=== PATIENT | female | born 1975 | race Caucasian/White ===

== ENCOUNTER 2017-02-08 19:18 | Emergency (ER) | payer OTHER ==
[~2017-02-08] VITALS: Ht 162.6 cm; Wt 62.6 kg
--- NOTE | ~2017-02-08 | CT2 ---
[facility] A Service of [facility] & [facility] RADIOLOGY TEXT RESULTS PATIENT: SYBIL BURLESON LOCATION: [facility] : [birth year] UNIT #: [id number] AGE: [address]: Jose Fajardo DO SEX: F ORDER DR: [id number] [facility] [address] [place], [place] [address] [id number] E MR#: [id number] Acc #: [id number] NAME: SYBIL BURLESON : 1975 SEX: F STUDY DATE/TIME: 02/08/2017 23:52 UNIT: [facility] ROOM: STUDY DESCRIPTION: CT Abd and Pelv W Cont Attending Physician: Jose Fajardo D.O. Ordering Physician: Jose Fajardo D.O. Primary Care Physician: Luna Johnson MEDICAL IMAGING REPORT This report is preliminary unless electronic signature is present EXAM CT abdomen and pelvis 02/08 23:52 INDICATION Abdominal pain with nausea and chills that started today. Diagnosed with urinary tract infection yesterday. TECHNIQUE Axial images were obtained through the abdomen and pelvis following IV contrast administration. Multiplanar reformats were obtained. No comparison. This CT examination was performed with one or more of the following radiation dose reduction techniques: automatic exposure control, adjustment of mA and/or kV according to patient size, and iterative reconstruction. FINDINGS ABDOMEN: Lung bases are clear. Gallbladder is normal. No biliary obstruction. Left kidney is surgically absent. Right kidney is normal and nonobstructed. There is an area of low attenuation change in the medial segment of the left hepatic lobe. This is likely an area of focal fatty infiltration. Confirmation with outpatient liver MRI recommended. Solid organs otherwise are normal. No adenopathy or free fluid is seen. The unopacified GI tract is normal. PELVIS: IUD present within the uterus. Solid pelvic organs otherwise unremarkable. Urinary bladder is normal. The appendix is normal. Remainder of the unopacified GI tract is normal as well. IMPRESSION 1. No acute findings in the abdomen or pelvis. 2. Surgically absent left kidney. The right kidney is normal and nonobstructed. STS. [facility] A Service of [facility] & [facility] RADIOLOGY TEXT RESULTS PATIENT: SYBIL BURLESON LOCATION: [facility] : [birth year] UNIT #: [id number] AGE: [address]: Jose Fajardo DO SEX: F ORDER DR: 3. Normal unopacified GI tract including the appendix. 4. IUD within the uterus. 5. Low attenuation change in the medial segment of the left hepatic lobe is probably an area of fatty infiltration. Outpatient liver MRI is recommended to confirm. Dictated by... Keshawn Chou Jr., M.D. THIS IS AN ELECTRONICALLY VERIFIED REPORT Keshawn Chou Jr., M.D. at 02/12/2017 7:12 AM STEVE/rico TD: 02/09/2017 09:40 JOB #: [id number] MEDICAL IMAGING REPORT Page 1 of 1 COPY
[~2017-02-08 19:18] MED LIST: BACTRIM DS TABL1 TA1 PO; GLUCOPHAGE500 M1 PO; MOTRIN20 MG/ML PO; OXYCODONE-APAP1 EACH PO; PYRIDIUM PO; ZOCOR
[2017-02-08 21:31] LABS: BASOPHIL% 0.7 % (0-2.5); EOSINOPHIL% 0.6 % (0.0-7.0); HEMATOCRIT 40.5 % (35.0-45.0); LYMPHOCYTE# 1.1 X10e3 (1.0-3.5); MEAN CELL VOLUME 90.9 FL (83-96); MEAN CORPUSCULAR HEMOGLOBIN 31.4 PG (28-34); MEAN CORPUSCULAR HGB CONC 34.6 g/dL (30-36); MEAN PLATELET VOLUME 9.3 FL (6.5-11.5); MONOCYTE# 0.6 X10e3 (0-1.0); MONOCYTE% 10.6 % (3.0-12.0); NEUTROPHIL# 4.2 X10e3 (1.5-7.1); NEUTROPHIL% 70.1 % (40-75); PLATELET COUNT 196 X10e3 (140-420); RED BLOOD COUNT 4.46 X10e (3.90-5.30); WHITE BLOOD COUNT 5.9 X10e3 (4.0-10.5)
[2017-02-08 21:32] LABS: DIFF IND NO
[2017-02-08 21:57] LABS: URINE SOURCE CLEAN CATCH
[2017-02-08 22:04] LABS: URINE APPEARANCE CLEAR; URINE BILIRUBIN NEG (NEG); URINE BLOOD NEG (NEG); URINE COLOR YELLOW; URINE GLUCOSE 250 MG/DL (NEG); URINE KETONE NEG (NEG); URINE LEUKOCYTE ESTERASE TRACE (NEG); URINE NITRATE NEG (NEG); URINE PROTEIN 1+ (NEG); URINE SPECIFIC GRAVITY 1.005 (1.003-1.035); URINE UROBILINOGEN 0.2 MG/DL (NEG)
[2017-02-08 22:08] LABS: URBCS1 AUWI 0-2 /[HPF] (0-2); URINE BACTERIA AUWI NEG (NEGATIVE); URINE SQUAMOUS EPITHELIAL CELL NONE SEEN /[HPF]; UWBCS1 AUWI 0-2 (0-5)
[2017-02-08 22:29] LABS: ALBUMIN SERUM 4.3 g/dL (3.5-5.0); BILIRUBIN,TOTAL 0.3 mg/dL (0.2-2.0); CALCIUM SERUM 8.9 mg/dL (8.4-10.2); CREATININE SERUM 1.1 mg/dL (0.6-1.4); GLOM FILT RATE Estimated 63.2 mL/min (>60); POTASSIUM 3.7 mmol/L (3.5-5.1); PROTEIN TOTAL SERUM 7.6 g/dL (6.0-8.3)
[2017-02-08 22:33] LABS: BILIRUBIN, DIRECT 0.1 mg/dL (0.0-0.2); BILIRUBIN,INDIRECT 0.2 mg/dL (0.0-0.9)
[2017-02-08 22:35] LABS: CULTURE INDICATED? NO
[2017-02-11 11:31] LABS: CHLAMYDIA TRACH Not Detected (Not Detected); N GONOR Not Detected (Not Detected)
== END 2017-02-09 01:50 | disposition home or self-care (01) ==
LOC: CED 19:18
PROVIDERS: Emergency Medicine
DX: N73.9 Female pelvic inflammatory disease, unspecified (principal); A60.00 Herpesviral infection of urogenital system, unspecified; E11.9 Type 2 diabetes mellitus without complications; E78.5 Hyperlipidemia, unspecified; I10 Essential (primary) hypertension
CPT/HCPCS: 36415; 74177; 80048; 80076; 81003; 83690; 84703; 85025; 87491; 87591; 87808; 87905; 96360; 96372; 99284; J0696; Q9967